=== PATIENT | female | born 1990 | race Caucasian/White ===

== ENCOUNTER 2023-04-24 15:10 | Inpatient (IN) | payer OTHER ==
[~2023-04-24] VITALS: Ht 167.6 cm; Wt 122.0 kg
[2023-04-24 15:54] LABS: Urine Bacteria FEW /hpf (None Seen); Urine Blood 3+ /uL (Negative); Urine Clarity CLOUDY (Clear); Urine Mucus FEW (None Seen); Urine Protein, UAD 2+ (Negative); Urine Specific Gravity 1.035 (1.001-1.035); Urine Urobilinogen Normal (Negative); Urine WBC 118 /hpf (0 - 5); Urine pH 5.5 (5.0-8.0)
[2023-04-24 16:00] LABS: Urine Color Yellow (Yellow)
[2023-04-24 16:02] LABS: Basophils # (auto) 0.1 10 ^3/uL (0-0.2); Basophils % (auto) 0.5 % (0.0-2.0); Eosinophils # (auto) 0.2 10 ^3/uL (0-0.8); Eosinophils % (auto) 1.9 % (0.0-7.0); Hemoglobin 12.2 g/dL (12.2-16.2); Lymphocytes # (auto) 1.8 10 ^3/uL (0.4-5.4); Mean Corpuscular Hemoglobin 23.8 pg (28.0-32.0); Mean Corpuscular Hgb Conc. 32.2 g/dL (32.0-36.0); Mean Corpuscular Volume 74.1 fL (80.0-100.0); Monocytes # (auto) 0.6 10 ^3/uL (0-1.3); Monocytes % (auto) 5.1 % (0.0-12.0); Neutrophils # (auto) 8.7 10 ^3/uL (1.6-8.6); Neutrophils % (auto) 76.5 % (37.0-80.0); Red Blood Cells 5.13 10^6/uL (4.0-5.20); White Blood Cell 11.3 10^3/uL (4.4-10.8)
[2023-04-24 16:17] LABS: Albumin 3.3 g/dL (3.4-5.0); Calcium 8.7 mg/dL (8.5-10.1); Potassium 3.9 mmol/L (3.5-5.1)
[2023-04-24 16:22] LABS: BUN/Creatinine Ratio 18.5 (10.0-20.0); Bilirubin, Total 0.1 mg/dL (0.2-1.0); Total Protein 7.8 g/dL (6.4-8.2)
[2023-04-24] MEDS ORDERED: KETOROLAC TROMETH 30 MG/ML 1ML VIAL IV ONE (18:15)
[2023-04-24] MEDS ORDERED: cefTRIAXone 1GM/50ML D5W 50 ML IV ONE (18:15)
[2023-04-24] MEDS ORDERED: SODIUM CHLORIDE 0.9% 1,000 ML IVB ONE (18:15)
[2023-04-24] MEDS ORDERED: TEMAZEPAM 15 MG CAP PO PRN (21:00)
[2023-04-24] MEDS ORDERED: ACETAMINOPHEN 325 MG TAB PO PRN (21:00)
[2023-04-24] MEDS ORDERED: MORPHINE SULFATE INJ 2 MG/ml SYRG IV PRN (21:00)
[2023-04-24 21:45] VITALS: PULSE 96; RESP 18; O2SAT 96
[2023-04-25] VITALS (7 sets, daily range): BP systolic 129–158; BP diastolic 63–94; PULSE 68–108; RESP 16–19; TEMP 97.2–98; O2SAT 95–99
[2023-04-25] MEDS ORDERED: PARO1TAB33 PO (00:43)
[2023-04-25] MEDS: HYDROcodone-ACET 5/325MG TAB PO PRN ×4 (04:01→20:33)
[2023-04-25 06:38] LABS: Basophils # (auto) 0 10 ^3/uL (0-0.2); Basophils % (auto) 0.4 % (0.0-2.0); Eosinophils # (auto) 0.1 10 ^3/uL (0-0.8); Hemoglobin 10.9 g/dL (12.2-16.2); Red Blood Cells 4.49 10^6/uL (4.0-5.20)
[2023-04-25 06:39] LABS: Eosinophils % (auto) 1.2 % (0.0-7.0); Hematocrit 33.6 % (36.0-46.0); Lymphocytes # (auto) 1.4 10 ^3/uL (0.4-5.4); Lymphocytes % (auto) 17.4 % (10.0-50.0); Mean Corpuscular Hemoglobin 24.3 pg (28.0-32.0); Mean Corpuscular Hgb Conc. 32.5 g/dL (32.0-36.0); Mean Corpuscular Volume 74.7 fL (80.0-100.0); Monocytes # (auto) 0.7 10 ^3/uL (0-1.3); Monocytes % (auto) 8.3 % (0.0-12.0); Neutrophils % (auto) 72.7 % (37.0-80.0); Red Cell Distribution Width 15.6 % (11.8-14.3); White Blood Cell 8.2 10^3/uL (4.4-10.8)
[2023-04-25 06:51] LABS: Calcium 8.3 mg/dL (8.5-10.1); Potassium 3.7 mmol/L (3.5-5.1)
[2023-04-25 06:57] LABS: Albumin 3.1 g/dL (3.4-5.0); Bilirubin, Total 0.2 mg/dL (0.2-1.0); Total Protein 6.8 g/dL (6.4-8.2)
[2023-04-25] MEDS: cefTRIAXone 1GM/50ML D5W 50 ML IV SCH (09:04)
[2023-04-25] MEDS: PARoxetine 20 MG TAB PO SCH (09:04)
[2023-04-25] MEDS ORDERED: MANNITOL FTV 25% 12.5 GM/50 ML 50 ML IV ONE (11:30)
[2023-04-25] MEDS ORDERED: TAMSULOSIN HYDROCHLORIDE 0.4 MG CAP PO ONE (11:30)
[2023-04-25] MEDS: SODIUM CHLORIDE 0.9% 1,000 ML IV SCH ×2 (12:20→18:10)
[2023-04-25] MEDS ORDERED: TAMSULOSIN HYDROCHLORIDE 0.4 MG CAP PO SCH (18:00)
[2023-04-25] MEDS: ONDANSETRON HCL 4 MG/2 ML VIAL IV PRN ×2 (18:52→23:19)
[2023-04-26] MEDS: SODIUM CHLORIDE 0.9% 1,000 ML IV SCH ×2 (00:50→08:32)
[2023-04-26 05:00] VITALS: BP 145/93; PULSE 96; RESP 18; TEMP 98; O2SAT 98
[2023-04-26] MEDS: ONDANSETRON HCL 4 MG/2 ML VIAL IV PRN (05:19)
[2023-04-26] MEDS: HYDROcodone-ACET 5/325MG TAB PO PRN (05:19)
[2023-04-26 08:00] VITALS: BP 142/94; PULSE 96; RESP 17; TEMP 98.5
[2023-04-26] MEDS ORDERED: TRAM50TA2 PO (08:22)
[2023-04-26] MEDS ORDERED: CIPR-173 PO (08:22)
[2023-04-26] MEDS ORDERED: TAMS-35 PO (08:22)
[2023-04-26 09:00] VITALS: BP 142/94; PULSE 96; RESP 17; TEMP 98.5; O2SAT 97
[2023-04-26] MEDS: PARoxetine 20 MG TAB PO SCH (09:35)
[2023-04-26] MEDS: cefTRIAXone 1GM/50ML D5W 50 ML IV SCH (09:36)
[2023-04-26 11:18] VITALS: BP 142/94; PULSE 96; RESP 17; TEMP 98.5; O2SAT 97
[2023-04-26] MEDS ORDERED: TAMSULOSIN HYDROCHLORIDE 0.4 MG CAP PO SCH (18:00)
== END 2023-04-26 12:00 | disposition home or self-care (01) | DRG 872 ==
LOC: ER 15:10 → OVERFLOW 20:55 → CENTRAL 22:16
PROVIDERS: ADMIT Family Medicine; ATTEND Family Medicine
DX: A41.9 Sepsis, unspecified organism (principal); N13.6 Pyonephrosis; Z68.41 Body mass index [BMI] 40.0-44.9, adult; E66.01 Morbid (severe) obesity due to excess calories; E78.00 Pure hypercholesterolemia, unspecified; F32.A Depression, unspecified; Z80.41 Family history of malignant neoplasm of ovary; Z81.8 Family history of other mental and behavioral disorders; Z82.49 Family history of ischemic heart disease and other diseases of the circulatory system; Z83.3 Family history of diabetes mellitus
CPT/HCPCS: 36415; 74176; 76705; 80053; 81001; 83690; 85025; 87086; G0378; J0696; J1885; J2405

== ENCOUNTER 2024-05-04 08:02 | Inpatient (IN) | payer OTHER ==
[~2024-05-04] VITALS: Ht 167.6 cm; Wt 116.0 kg
[~2024-05-04 08:02] MED LIST: CIPR-173 PO; PARO1TAB33 PO; TAMS-35 PO; TRAM50TA2 PO
[2024-05-04 08:23] VITALS: PULSE 90; RESP 18; O2SAT 97
[2024-05-04] MEDS: SODIUM CHLORIDE 0.9% 1,000 ML IVB ONE (08:29)
[2024-05-04] MEDS: KETOROLAC TROMETH 30 MG/ML 1ML VIAL IV ONE (08:30)
[2024-05-04] MEDS: ONDANSETRON HCL 4 MG/2 ML VIAL IV ONE (08:30)
[2024-05-04 09:28] LABS: Basophils # (auto) 0 10 ^3/uL (0-0.2); Basophils % (auto) 0.3 % (0.0-2.0); Eosinophils # (auto) 0.1 10 ^3/uL (0-0.8); Eosinophils % (auto) 0.9 % (0.0-7.0); Hematocrit 37.5 % (36.0-46.0); Lymphocytes # (auto) 1.1 10 ^3/uL (0.4-5.4); Lymphocytes % (auto) 12.1 % (10.0-50.0); Mean Corpuscular Hemoglobin 23.5 pg (28.0-32.0); Mean Corpuscular Hgb Conc. 32.1 g/dL (32.0-36.0); Mean Corpuscular Volume 73.2 fL (80.0-100.0); Monocytes # (auto) 0.5 10 ^3/uL (0-1.3); Monocytes % (auto) 5.7 % (0.0-12.0); Neutrophils # (auto) 7.6 10 ^3/uL (1.6-8.6); Platelet Count (auto) 242 10^3/uL (140-450); Red Blood Cells 5.13 10^6/uL (4.0-5.20); Red Cell Distribution Width 17.4 % (11.8-14.3); White Blood Cell 9.3 10^3/uL (4.4-10.8)
[2024-05-04 09:50] LABS: Anion Gap 4 (5-15); Carbon Dioxide 25 mmol/L (20-30); Chloride 108 mmol/L (98-107); Potassium 3.7 mmol/L (3.5-5.1); Sodium 137 mmol/L (136-145)
[2024-05-04 09:51] LABS: Calcium 9.2 mg/dL (8.7-10.4)
[2024-05-04 09:56] LABS: BUN/Creatinine Ratio 12.5 (10.0-20.0); Blood Urea Nitrogen 10 mg/dL (9-23); Glucose 98 mg/dL (74-106)
[2024-05-04 10:23] LABS: Urine Bacteria None Seen /hpf (None Seen)
[2024-05-04 11:00] LABS: Urine Blood 2+ /uL (Negative); Urine Clarity Turbid (Clear); Urine Color Yellow (Yellow); Urine Mucus FEW (None Seen); Urine Protein, UAD 1+ (Negative); Urine Specific Gravity 1.036 (1.001-1.035); Urine Urobilinogen Normal (Negative); Urine WBC 6 /hpf (0 - 5); Urine pH 5.5 (5.0-9.0)
[2024-05-04] MEDS ORDERED: NITROGLYCERIN 0.4 MG SL TAB SL PRN (13:00)
[2024-05-04] MEDS ORDERED: DOCUSATE SOD 100 MG CAP PO PRN (13:00)
[2024-05-04] MEDS: SODIUM CHLORIDE 0.9% 1,000 ML IV SCH (16:46)
[2024-05-04] MEDS: MORPHINE SULFATE INJ 2 MG/ml SYRG IV PRN (16:52)
[2024-05-04] MEDS: ONDANSETRON HCL 4 MG/2 ML VIAL IV PRN (16:52)
[2024-05-04] MEDS: TAMSULOSIN HYDROCHLORIDE 0.4 MG CAP PO SCH (18:22)
[2024-05-04] MEDS: amLODIPine BESYLATE 5 MG TAB PO ONE (20:14)
[2024-05-04] MEDS ORDERED: AMPH10TA2 PO (22:01)
[2024-05-04] MEDS ORDERED: LORA-622 PO (22:02)
[2024-05-04] MEDS ORDERED: ATOR10TA52 PO (22:02)
[2024-05-04] MEDS ORDERED: CHOL20007 PO (22:02)
[2024-05-04 23:36] VITALS: BP 136/80; PULSE 97; RESP 18; TEMP 98.2; O2SAT 95
[2024-05-05] VITALS (7 sets, daily range): BP systolic 121–140; BP diastolic 85–91; PULSE 89–106; RESP 17–19; TEMP 98–98.7; O2SAT 95–98
[2024-05-05 07:50] LABS: Basophils # (auto) 0 10 ^3/uL (0-0.2); Basophils % (auto) 0.4 % (0.0-2.0); Eosinophils # (auto) 0.1 10 ^3/uL (0-0.8); Eosinophils % (auto) 2.2 % (0.0-7.0); Hematocrit 35.6 % (36.0-46.0); Hemoglobin 11.4 g/dL (12.2-16.2); Lymphocytes # (auto) 1.4 10 ^3/uL (0.4-5.4); Lymphocytes % (auto) 25.1 % (10.0-50.0); Mean Corpuscular Hemoglobin 23.3 pg (28.0-32.0); Mean Corpuscular Hgb Conc. 31.9 g/dL (32.0-36.0); Monocytes # (auto) 0.4 10 ^3/uL (0-1.3); Monocytes % (auto) 6.8 % (0.0-12.0); Neutrophils # (auto) 3.6 10 ^3/uL (1.6-8.6); Neutrophils % (auto) 65.5 % (37.0-80.0); Nucleated Red Blood Cells % 0.1 %; Platelet Count (auto) 197 10^3/uL (140-450); Red Blood Cells 4.88 10^6/uL (4.0-5.20); Red Cell Distribution Width 16.8 % (11.8-14.3); White Blood Cell 5.6 10^3/uL (4.4-10.8)
[2024-05-05 08:00] LABS: Alanine Aminotransferase 18 U/L (7-40); Albumin 3.9 g/dL (3.2-4.8); Alkaline Phosphatase 98 U/L (46-116); Anion Gap 6 (5-15); Aspartate Aminotransferase 13 U/L (13-40); BUN/Creatinine Ratio 7.4 (10.0-20.0); Blood Urea Nitrogen 5 mg/dL (9-23); Calcium 8.7 mg/dL (8.7-10.4); Carbon Dioxide 21 mmol/L (20-30); Chloride 112 mmol/L (98-107); Glucose 89 mg/dL (74-106); Potassium 3.5 mmol/L (3.5-5.1); Sodium 139 mmol/L (136-145)
[2024-05-05 08:01] LABS: Bilirubin, Total 0.4 mg/dL (0.2-1.0); Total Protein 6.3 g/dL (5.7-8.2)
[2024-05-05] MEDS: amLODIPine BESYLATE 5 MG TAB PO SCH (11:13)
[2024-05-05] MEDS: PARoxetine 20 MG TAB PO SCH (11:13)
== END 2024-05-05 20:00 | disposition home or self-care (01) | DRG 694 ==
LOC: ER 08:02 → OVERFLOW 12:58 → WEST WING 21:43
PROVIDERS: ADMIT Internal Medicine; ATTEND Internal Medicine
DX: N13.2 Hydronephrosis with renal and ureteral calculous obstruction (principal); Z68.41 Body mass index [BMI] 40.0-44.9, adult; E66.9 Obesity, unspecified; I10 Essential (primary) hypertension; F32.A Depression, unspecified; E78.5 Hyperlipidemia, unspecified; F41.9 Anxiety disorder, unspecified; Z83.3 Family history of diabetes mellitus; Z82.49 Family history of ischemic heart disease and other diseases of the circulatory system
CPT/HCPCS: 36415; 74176; 80048; 80053; 81001; 81025; 85025; 96374; 96375; G0378; J1885; J2405